=== PATIENT | female | born 1985 | race Caucasian/White ===

== ENCOUNTER → 2018-03-03 16:20 | Outpatient (REF) | payer MEDICAID, SELFPAY ==
[2018-03-08 09:18] LABS: Neisseria gonorrhoeae, NAA Negative (Negative)
== END ==
LOC: LAB 16:20
PROVIDERS: Visit Provider Nurse Practitioner Obstetrics & Gynecology
DX: R10.9 Unspecified abdominal pain (principal); Z72.51 High risk heterosexual behavior
CPT/HCPCS: 87491; 87591

== ENCOUNTER → 2018-11-22 14:09 | Outpatient (CLI) | payer MEDICAID, SELFPAY ==
--- NOTE | 2018-11-22 14:14 | US_ITS ---
US transvaginal HISTORY: ITS.REASON: US T/V- Heavy bleeding cramps ORDERING PHYSICIAN: Velasquez Irwin MD PATIENT AGE: 33 years Comparison: 02/24/2017 FINDINGS: The uterus measures 7 x 4 x 5 cm. Combined endometrial thickness is 3 mm. There is an IUD noted within the lower uterine segment.. The T portion of the IUD is in the low to mid uterus. The ovaries are not demonstrated. IMPRESSION: There is an IUD present within the lower uterine segment Ovaries not identified
== END ==
PROVIDERS: PCP Family Medicine; Visit Provider Nurse Practitioner Obstetrics & Gynecology
DX: N92.0 Excessive and frequent menstruation with regular cycle (principal); R10.9 Unspecified abdominal pain
CPT/HCPCS: 76830

== ENCOUNTER → 2021-10-01 09:06 | Outpatient (CLI) | payer MEDICAID, SELFPAY | PROVIDERS: Visit Provider Nurse Practitioner | DX: Z20.822 Contact with and (suspected) exposure to COVID-19 (principal) | CPT/HCPCS: C9803; U0003; U0005 ==

== ENCOUNTER → 2021-10-06 08:58 | Outpatient (CLI) | payer MEDICAID, SELFPAY | PROVIDERS: Visit Provider Nurse Practitioner | DX: Z20.822 Contact with and (suspected) exposure to COVID-19 (principal) | CPT/HCPCS: C9803; U0003; U0005 ==

== ENCOUNTER → 2023-08-24 13:21 | Outpatient (CLI) | payer BC, MEDICAID, SELFPAY ==
--- NOTE | 2023-08-24 13:22 | US_ITS ---
PROCEDURE: US TRANSVAGINAL CLINICAL INDICATION: pelvic pain COMPARISON: No exams were available for comparison FINDINGS: Transvaginal sonographic images of the pelvis were obtained. UTERUS: 7.0 cm x 3.9 cmx 3.3 cm with a combined endometrial thickness of 2.2mm. LEFT OVARY: Not visualized RIGHT OVARY: Not visualized Both ovaries are not seen. There is no fluid in the cul-de-sac. IMPRESSION: 1. Anteverted uterus normal in shape and size. 9 mm nabothian cyst in the cervix. 2. The endometrium is thin. 3. Difficult examination secondary to obesity but there appears to be an IUD in the lower uterine segment. 4. Ovaries could not be visualized today. 5. No fluid in the cul-de-sac. Dictated by: Velasquez Irwin MD 08/25/2023 11:56 Velasquez Irwin MD in OV 08/25/2023 11:56
== END ==
PROVIDERS: PCP Pediatrics; Visit Provider Obstetrics & Gynecology
DX: R10.2 Pelvic and perineal pain (principal)
CPT/HCPCS: 76830

== ENCOUNTER 2025-01-15 07:51 | Outpatient (CLI) | payer BC, SELFPAY ==
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
--- NOTE | 2025-01-15 08:00 | MM_ITS ---
PROCEDURE INFORMATION: Exam: MG Bilateral Screening 3D Mammography Exam date and time: 01/15/2025 8:08 AM Age: 39 years old Clinical indication: Screening examination. TECHNIQUE: Imaging protocol: Bilateral Screening tomosynthesis and 2D mammography including computer-aided detection (CAD) when performed. COMPARISON: No relevant prior studies available. FINDINGS: MAMMOGRAPHY: Breast composition: There are scattered areas of fibroglandular density. Mass: None. Architectural distortion: None. Calcifications: No suspicious calcifications. Asymmetric density: None. Skin thickening: None. Axillary adenopathy: None. IMPRESSION: No mammographic evidence of malignancy. Annual screening is recommended unless otherwise clinically indicated. ASSESSMENT: BI-RADS Category 1: Negative.
== END 2025-01-15 23:59 | disposition home or self-care (01) ==
LOC: RAD 07:52
PROVIDERS: PCP Pediatrics; Visit Provider Nurse Practitioner Obstetrics & Gynecology
DX: Z12.31 Encounter for screening mammogram for malignant neoplasm of breast (principal)
CPT/HCPCS: 77063; 77067